=== PATIENT | female | born 1935 | race Caucasian/White ===

== ENCOUNTER → 2018-01-27 | Outpatient (CLI) | payer BC, MEDICARE, OTHER ==
[~2018-01-27] MED LIST: LOSA25TA PO; ROSU1TAB4 PO; TRIA1CAP6 PO
--- NOTE | 2018-01-29 08:26 | EKG ---
Date Performed: 01/27/2018 Time Performed: 11:06:48 PTAGE: 82 years EKG: Sinus rhythm NORMAL ECG NO PREVIOUS TRACING DOCTOR: Abner Lopez Interpretating Date/Time 01/29/2018 08:25:01
== END ==
LOC: PHPRE 10:00
PROVIDERS: ATTEND Ophthalmology
DX: Z01.810 Encounter for preprocedural cardiovascular examination (principal); I10 Essential (primary) hypertension
CPT/HCPCS: 93005

== ENCOUNTER → 2018-02-10 | Day surgery (SDC) | payer BC, MEDICARE, OTHER ==
--- NOTE | 2018-01-29 13:35 | MH ---
cc: Noé Montague MD DATE OF ADMISSION: 02/10/2018 ADMISSION DIAGNOSIS: Cataract, left eye. HISTORY OF PRESENT ILLNESS: This 82-year-old white female is coming to [facility] for the purpose of a lens extraction of the left eye with intraocular lens implant under local anesthesia. She has noted decreasing visual acuity interfering with her daily activities and elected to have the above procedure. Her best corrected visual in room light is 20/40 -2 in the right eye and 20/40 -1 in the left eye. 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 PAST SURGICAL HISTORY: Includes tonsillectomy. DAILY MEDICATIONS: Include simvastatin, Maxzide, losartan, multivitamins, calcium, Fosamax, vitamin E and D3. ALLERGIES: SHE HAS NO KNOWN ALLERGIES. SOCIAL HISTORY: She was a 1 pack per day smoker for 20 years and socially drinks alcoholic beverages, never more than 2. FAMILY HISTORY: Positive for sister and mother with cataract. REVIEW OF SYSTEMS: HEAD: Patient denies severe headaches, dizziness or recent head injury. EARS: The patient has some hearing loss and tinnitus in her ears for many years. NOSE: Patient denies nasal discharge, obstruction or frequent colds. MOUTH AND THROAT: Patient denies soreness of the mouth or tongue, bleeding gums, trouble swallowing, changes in voice or sore throat. NECK: Patient denies neck pain or swelling, limitation of neck movement or neck injury. CARDIOPULMONARY SYSTEM: Patient denies shortness of breath, orthopnea, chronic cough, sputum production, hemoptysis, chest pain, wheezing, palpitations or light-headedness. GI SYSTEM: Patient denies poor appetite, nausea, vomiting, abdominal pain, ulcers, hemorrhoids or change in bowel habits. SYSTEM: The patient has urinary frequency at night due to fluid intake. NERVOUS SYSTEM: Patient denies convulsions, vertigo, stroke, numbness or weakness. PHYSICAL EXAMINATION: VITAL SIGNS: Blood pressure 128/72, pulse 64, respirations 20. HEAD: Normocephalic, atraumatic. Nose without rhinorrhea. Throat clear. NECK: Supple. CHEST: Clear. HEART: Regular rhythm. ABDOMEN: Without tenderness. EXTREMITIES: Without edema. NEUROLOGIC: Within normal limits. MENTAL STATUS: Within normal limits. EYES: The patient's best corrected visual acuity in room light is 20/40 -2 in the right eye and 20/40 -1 in the left. Visual aguilar are full to confrontation testing. Extraocular muscle exams reveals full versions with esotropia at distance and near. Pupils are 3 mm equal, round, reactive to light without afferent defect. Anterior segment examination reveals nuclear sclerotic cataracts bilaterally. Intraocular pressure is 16 in each eye by applanation tonometry. Dilated fundus exam revealed sharp discs with cup to disc ratio of 0.2 bilaterally. The macula is clear bilaterally. A posterior vitreous detachment is present bilaterally. IMPRESSION: 1. Bilateral cataracts. 2. Posterior vitreous detachment, both eyes. 3. Esotropia. PLAN: Lens extraction of the left eye with intraocular lens implant under local anesthesia through [facility]. The patient has been cleared medically. She has been counseled as to the risks, benefits and alternatives and elected to proceed. I feel that cataract surgery will improve the quality of life and activities of daily living in this patient. MD MAHI Vernon/SHIRIN , 12:47 PM , 01:33 PM
[~2018-02-10] VITALS: Ht 154.9 cm; Wt 50.0 kg
[~2018-02-10] MED LIST changes: +ACETYLCHOLINE CHL OPHT SOLN 1:100 2 ML VIAL ONE; +BENA25TA6 PO; +CHLORHEXIDINE GLUCONATE 2 % 1 PACK (2 CLOTHS) TOPICAL PRN; +CYCLOPENTOLATE HCL 1% OPHT SOLN 2 ML BTL ONE; +DICLOFENAC SOD 0.1% OPHT SOLN 2.5 ML BTL ONE; +EPINEPHrine HCL PF/SF (1:1000) 1 MG/ML AMP I-OCULAR ONE; +GATIFLOXACIN 0.5% OPHT SOLN 2.5 ML BTL ONE; +HYALURONIDASE/LIDOCAINE/BUPIVACAINE 5 ML SYR LEFT EYE ONE; +LACTATED RINGER'S 1000 ML IV PRN; +METOPROLOL TARTRATE 25 MG TAB PO PRN; +PHENYLEPHRINE HCL 2.5% OPTH SOLN 2 ML BTL ONE; +POVIDONE IODINE 5% (ANTISEPSIS KIT) 4 APPLICATIONS EACH NARE PRN; +PROPARACAINE HCL 0.5% OPHT SOLN 15 ML BTL LEFT EYE ONE; +PROPARACAINE HCL 0.5% OPHT SOLN 15 ML BTL ONE; +PROPOFOL 200 MG/20 ML AMP ONE; +SODIUM CHLORID 0.9% 500 ML IV PRN; +TOBRAMYCIN/DEXAMETHASONE OPTH OINT 3.5 GM TUBE ONE; +TROPICAMIDE 1% OPHT SOLN 15 ML BTL ONE; +VISCOAT OPHT IRRIG SOLN 0.75 ML SYRINGE ONE
[2018-02-10 06:45] VITALS: PULSE 83
[2018-02-10] MEDS: GATIFLOXACIN 0.5% OPHT SOLN 2.5 ML BTL LEFT EYE SCH ×4 (06:55→07:04)
[2018-02-10] MEDS: CYCLOPENTOLATE HCL 1% OPHT SOLN 2 ML BTL LEFT EYE SCH ×4 (06:55→07:04)
[2018-02-10] MEDS: TROPICAMIDE 1% OPHT SOLN 15 ML BTL LEFT EYE SCH ×4 (06:55→07:04)
[2018-02-10] MEDS: DICLOFENAC SOD 0.1% OPHT SOLN 2.5 ML BTL LEFT EYE SCH ×4 (06:55→07:04)
[2018-02-10] MEDS: PHENYLEPHRINE HCL 2.5% OPTH SOLN 2 ML BTL LEFT EYE SCH ×4 (06:55→07:04)
[2018-02-10 07:16] VITALS: PULSE 72
[2018-02-10] MEDS: PILOCARPINE HCL 2% OPHT SOLN 15 ML BTL ONE ×2 (08:43→08:45)
--- NOTE | 2018-02-10 09:15 | MP ---
cc: Noé Mnotague MD DATE OF OPERATION: 02/10/2018 POSTOPERATIVE DIAGNOSIS: Cataract left eye. OPERATION: Extracapsular cataract extraction with posterior chamber intraocular lens implant by phacoemulsification, left eye. SURGEON: Noé Montague M.D. ANESTHESIA: Local. COMPLICATIONS: None. INDICATIONS: See history and physical previously dictated. OPERATIVE PROCEDURE: The patient had adequate retrobulbar and eyelid blocks administered in the holding area and was brought to the operating room. The left eye was prepped and draped in the usual sterile ophthalmic manner. A lid speculum was inserted in the left eye. A 4-0 silk bridle suture was placed through the conjunctiva near the superior rectus muscle and it was tagged to the drape. A fornix-based conjunctival flap was prepared spanning approximately 5 mm in width. Hemostasis was obtained with wet-field cautery. A 3.5 mm groove was made 1 mm from the limbus and dissected up to the limbus in the form of a scleral pocket incision. A stab incision was then made at the 2 o'clock position. Viscoelastic was injected into the anterior chamber. The anterior chamber was entered with a 2.75 mm keratome through the scleral pocket incision. A 360 degree continuous curvilinear capsulorrhexis was then performed. Hydrodissection was utilized to divide the nucleus into inner and outer components and to separate the cortex from the capsule. Phacoemulsification was then utilized to remove the nucleus. The outer nuclear layer was removed with irrigation and aspiration and short bursts of ultrasound as necessary. The cortex was removed with the irrigation/aspiration handpiece. The posterior capsule was polished with the capsule polisher. Viscoelastic was injected into the capsular bag. The intraocular lens was inspected and found to be in good condition. The lens utilized was a Florentin, model number SA60AT with a power of +19.5 diopters. The lens was inserted into the capsular bag. The viscoelastic in the anterior chamber was then removed with the irrigation-aspiration handpiece. Viscoelastic was also removed from beneath the intraocular lens. The anterior chamber was filled with Miochol-E through the stab incision and pressurized. The wound was checked for leaks at this pressure and normalized pressure and there were none. The 4-0 bridle suture was removed. The conjunctival flap was brought down over the wound and secured with cautery. Pilocarpine 2% eye drops were instilled topically. The lid speculum was removed. TobraDex ophthalmic ointment was applied. The eye was double patched and shielded. The patient tolerated the procedure well and left the Operating Room in satisfactory condition. MD MAHI Vernon/DEMETRA , 08:56 AM , 09:14 AM
[2018-02-10 09:26] VITALS: BP 142/54; PULSE 79; RESP 16; TEMP 98; O2SAT 97
== END | disposition home or self-care (01) ==
LOC: PHSDC 06:16
PROVIDERS: ATTEND Ophthalmology
DX: H26.9 Unspecified cataract (principal); I10 Essential (primary) hypertension; M81.0 Age-related osteoporosis without current pathological fracture; I72.8 Aneurysm of other specified arteries; Z87.891 Personal history of nicotine dependence; H43.813 Vitreous degeneration, bilateral; H50.00 Unspecified esotropia
CPT/HCPCS: 00142; 66984; J0171; J7040; V2632

== ENCOUNTER → 2018-03-17 | Outpatient (CLI) | payer OTHER ==
--- NOTE | 2018-03-05 13:13 | MH ---
cc: Noé Montague MD DATE OF ADMISSION: 03/17/2018 ADMISSION DIAGNOSIS: Cataract, right eye. HISTORY OF PRESENT ILLNESS: This 82-year-old white female is coming to [facility] for the purpose of the lens extraction of the right eye with intraocular lens implant under local anesthesia. She has noted decreasing visual acuity interfering with her daily activities and elected to have the procedure. She had a similar procedure on her left eye in January of this year and did well postoperatively. Her best corrected visual acuity is 20/40 -1 in the right eye and 20/20 -1 in the left. 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 PAST SURGICAL HISTORY: The surgical history is that of tonsillectomy and the above-mentioned cataract surgery with intraocular lens implant in the left eye on 02/10/2018. DAILY MEDICATIONS: Include simvastatin, Maxzide, losartan, multivitamins, calcium, fosamax, vitamin __ and D3. ALLERGIES: SHE HAS NO KNOWN ALLERGIES. SOCIAL HISTORY: He has been a 1 pack per day smoker for 20 years and drinks socially alcohol, but never more than 2 drinks at a time. FAMILY HISTORY: Positive for mother and sister with cataracts. REVIEW OF SYSTEMS: HEAD: Patient denies severe headaches, dizziness or recent head injury. EARS: The patient has hearing loss and tinnitus in her ears for many years. NOSE: Patient denies nasal discharge, obstruction or frequent colds. MOUTH AND THROAT: Patient denies soreness of the mouth or tongue, bleeding gums, trouble swallowing, changes in voice or sore throat. NECK: Patient denies neck pain or swelling, limitation of neck movement or neck injury. CARDIOPULMONARY SYSTEM: Patient denies shortness of breath, orthopnea, chronic cough, sputum production, hemoptysis, chest pain, wheezing, palpitations or light-headedness. GI SYSTEM: Patient denies poor appetite, nausea, vomiting, abdominal pain, ulcers, hemorrhoids or change in bowel habits. SYSTEM: She gets up at night to urinate frequently due to fluid intake. NERVOUS SYSTEM: Patient denies convulsions, vertigo, stroke, numbness or weakness. PHYSICAL EXAMINATION: VITAL SIGNS: Blood pressure is 128/64, pulse 84, respirations 20. HEAD: Normocephalic, atraumatic. NOSE: Without rhinorrhea. THROAT: Clear. NECK: Supple. CHEST: Clear. HEART: Regular rate and rhythm. ABDOMEN: Without tenderness. EXTREMITIES: Without edema. NEUROLOGIC: Within normal limits. MENTAL STATUS: Within normal limits. EYE EXAM: The patient's best corrected visual acuity is 20/40 -1 in the right eye and 20/20 -1 in the left. Visual aguilar are full to confrontation testing. Extraocular muscle exam reveals full versions with esotropia at distance and near. Pupils are 3 mm, equal, round, and reactive to light, without afferent defect. Anterior segment examination reveals a nuclear sclerotic cataract in the right eye and a posterior chamber intraocular lens in the left. Intraocular pressure is 14 in the right eye and 16 in the left by applanation tonometry. Dilated fundus exam revealed sharp disks with cup-to-disc ratio 0.2 bilaterally. The macula is clear and a posterior vitreous detachment is present bilaterally. IMPRESSION: 1. Cataract, right eye. 2. Pseudophakia, left eye. 3. Posterior vitreous detachment, both eyes. 4. Esotropia. PLAN: Lens extraction of the right eye with intraocular lens implant under local anesthesia through [facility]. The patient has been cleared medically. She has been counseled as to the risks, benefits and alternatives and elected to proceed. I feel the cataract surgery will improve the quality of life and activities of daily living in this patient. MD MAHI Vernon/ANTONIO , 11:29 AM , 11:58 AM
[~2018-03-17] VITALS: Ht 154.9 cm; Wt 48.5 kg
[~2018-03-17] MED LIST changes: -CYCLOPENTOLATE HCL 1% OPHT SOLN 2 ML BTL ONE; -DICLOFENAC SOD 0.1% OPHT SOLN 2.5 ML BTL ONE; +FOSA70TA PO; -GATIFLOXACIN 0.5% OPHT SOLN 2.5 ML BTL ONE; -HYALURONIDASE/LIDOCAINE/BUPIVACAINE 5 ML SYR LEFT EYE ONE; +HYALURONIDASE/LIDOCAINE/BUPIVACAINE 5 ML SYR RIGHT EYE ONE; -PHENYLEPHRINE HCL 2.5% OPTH SOLN 2 ML BTL ONE; +PILOCARPINE HCL 2% OPHT SOLN 15 ML BTL ONE; -PROPARACAINE HCL 0.5% OPHT SOLN 15 ML BTL LEFT EYE ONE; -PROPARACAINE HCL 0.5% OPHT SOLN 15 ML BTL ONE; +PROPARACAINE HCL 0.5% OPHT SOLN 15 ML BTL RIGHT EYE ONE; +SIMV5TAB3 PO; +TETRACAINE 0.5% OPTH SOLN 4 ML BTL ONE; -TROPICAMIDE 1% OPHT SOLN 15 ML BTL ONE
[2018-03-17] MEDS: DICLOFENAC SOD 0.1% OPHT SOLN 2.5 ML BTL RIGHT EYE SCH ×4 (07:37→07:46)
[2018-03-17] MEDS: TROPICAMIDE 1% OPHT SOLN 15 ML BTL RIGHT EYE SCH ×4 (07:37→07:46)
[2018-03-17] MEDS: CYCLOPENTOLATE HCL 1% OPHT SOLN 2 ML BTL RIGHT EYE SCH ×4 (07:37→07:46)
[2018-03-17] MEDS: PHENYLEPHRINE HCL 2.5% OPTH SOLN 2 ML BTL RIGHT EYE SCH ×4 (07:37→07:46)
[2018-03-17] MEDS: GATIFLOXACIN 0.5% OPHT SOLN 2.5 ML BTL RIGHT EYE SCH ×4 (07:37→07:46)
[2018-03-17 07:39] VITALS: PULSE 81
[2018-03-17 08:09] VITALS: PULSE 68
[2018-03-17 10:12] VITALS: TEMP 97.6
--- NOTE | 2018-03-17 10:25 | MP ---
cc: Néo Montague MD DATE OF OPERATION: 03/17/2018 PREOPERATIVE DIAGNOSIS: Cataract right eye. POSTOPERATIVE DIAGNOSIS: Cataract right eye. OPERATION: Extracapsular cataract extraction with posterior chamber intraocular lens implant by phacoemulsification, right eye. SURGEON: Noé Montague M.D. ANESTHESIA: Local. COMPLICATIONS: None. INDICATIONS: See history and physical previously dictated. OPERATIVE PROCEDURE: The patient had adequate retrobulbar and eyelid blocks administered in the holding area and was brought to the operating room. The right eye was prepped and draped in the usual sterile ophthalmic manner. A lid speculum was inserted in the right eye. A 4-0 silk bridle suture was placed through the conjunctiva near the superior rectus muscle and it was tagged to the drape. A fornix-based conjunctival flap was prepared spanning approximately 5 mm in width. Hemostasis was obtained with wet-field cautery. A 3.5 mm groove was made 1 mm from the limbus and dissected up to the limbus in the form of a scleral pocket incision. A stab incision was then made at the 2 o'clock position. Viscoelastic was injected into the anterior chamber. The anterior chamber was entered with a 2.75 mm keratome through the scleral pocket incision. A 360 degree continuous curvilinear capsulorrhexis was then performed. Hydrodissection was utilized to divide the nucleus into inner and outer components and to separate the cortex from the capsule. Phacoemulsification was then utilized to remove the nucleus. The outer nuclear layer was removed with irrigation and aspiration and short bursts of ultrasound as necessary. The cortex was removed with the irrigation/aspiration handpiece. The posterior capsule was polished with the capsule polisher. Viscoelastic was injected into the capsular bag. The intraocular lens was inspected and found to be in good condition. The lens utilized was an Florentin, model number SA60AT with a power of +19.5 Diopters. The lens was inserted into the capsular bag. The viscoelastic in the anterior chamber was then removed with the irrigation-aspiration handpiece. Viscoelastic was also removed from beneath the intraocular lens. The anterior chamber was filled with Miochol-E through the stab incision and pressurized. The wound was checked for leaks at this pressure and normalized pressure and there were none. The 4-0 bridle suture was removed. The conjunctival flap was brought down over the wound and secured with cautery. Pilocarpine 2% eye drops were instilled topically. The lid speculum was removed. TobraDex ophthalmic ointment was applied. The eye was double patched and shielded. The patient tolerated the procedure well and left the Operating Room in satisfactory condition. MD MAHI Vernon/SALVADOR , 10:16 AM , 10:24 AM
[2018-03-17 10:38] VITALS: BP 116/61; PULSE 80; RESP 14; O2SAT 99
== END ==
LOC: PHSDC 06:53
PROVIDERS: ATTEND Ophthalmology
DX: H26.9 Unspecified cataract (principal)
CPT/HCPCS: 00142; 66984; J0171; J7040; V2632